=== PATIENT | male | born 1960 | race Caucasian/White ===

== ENCOUNTER 2023-09-05 13:44 | Emergency (ER) | payer BC ==
[2023-09-05 13:56] VITALS: BP 164/89; O2SAT 100
[2023-09-05] MEDS: LIDOCAINE 1% 2 ML VIAL SUBQ STA (16:01)
[2023-09-05] MEDS: TETANUS/DIPHTHERIA/PERTUSSIS 0.5 ML SYRINGE IM ONE (16:25)
--- NOTE | 2023-09-05 16:37 | ED Physician Documentation ---
PD HPI UPPER EXT INJURY - Stated complaint Stated Complaint: LT HAND LAC - Chief complaint Chief Complaint: Laceration - History obtained from History obtained from: Patient, Family - History of Present Illness Location: Left, Hand Type of injury: Laceration Where injury occurred: Home Timing - onset: Today Timing - duration: Hours Timing - details: Abrupt onset, Still present Improved by: Rest Worsened by: Moving, Palpating Associated symptoms: No: Weakness, Numbness, Tingling, Swelling, Discolored Contributing factors: No: Anticoagulated Similar symptoms before: Diagnosis (laceration) Recently seen: Not recently seen - Additonal information Additional information: Justin Nascimento is a 62-year-old male who was washing out his bees sugar water cups when one of the cups broke and he lacerated his webspace of the fourth and fifth digits on the left hand. His attempted to tape the shut and this did not appear to work well. He is now here for suturing. He is not up-to-date on his tetanus. Review of Systems Constitutional: denies: Fever Respiratory: denies: Cough GI: denies: Vomiting, Diarrhea PD PAST MEDICAL HISTORY - Past Medical History Past Medical History: No - Past Surgical History Past Surgical History: No - Present Medications Home Medications: Ambulatory Orders Medication Instructions Recorded Confirmed Losartan [Cozaar] 50 mg PO DAILY 09/05/23 09/05/23 - Allergies Allergies/Adverse Reactions: Allergies Allergy/AdvReac Type Severity Reaction Status Date / Time No Known Drug Allergies Allergy Verified 09/05/23 15:18 - Social History Does the pt smoke?: No Smoking Status: Never smoker Does the pt drink ETOH?: No Does the pt have substance abuse?: No - Immunizations Immunizations are current?: No PD ED PE NORMAL - Vitals Vital signs reviewed: Yes (hypertensive ) - General General: Alert and oriented X 3, No acute distress, Well developed/nourished - HEENT HEENT: Atraumatic, PERRL, EOMI - Respiratory Respiratory: No respiratory distress - Derm Derm: Normal color, Warm and dry, No rash - Extremities Extremities: No deformity, No edema, Other (There is a 3 cm laceration of the webspace between the fourth and fifth digits of the left hand. There is no involvement of deeper tissues there is no foreign material in the wound.) - Neuro Neuro: Alert and oriented X 3, neurology epilepsy physician 2-12 intact, No motor deficit, No sensory deficit, Normal speech Eye Opening: Spontaneous Motor: Obeys Commands Verbal: Oriented GCS Score: 15 - Psych Psych: Normal mood, Normal affect Results - Vitals Vitals: Vital Signs - 24 hr 09/05/23 13:52 Temperature 36.7 C Heart Rate 66 Respiratory 16 Rate Blood Pressure 164/89 H O2 Saturation 100 Procedures - Laceration (location) left hand Length in cm: 3 Wound type: Linear, Into subcut fat, Clean Neurovascular status: Sensory intact, Motor intact, Vascular intact Tendon involvement: Tendon intact Anesthesia: Lidocaine 1% Wound preparation: Hibiclens, Irrigated copiously NS, Wound explored, To the base Skin layer closure: Nylon, Interrupted, Size #-0 - enter number (5-0), Sutures - enter # (4) Other: Patient tolerated well, No complications, Neurovascular intact, Dressing applied, Tetanus booster given PD Medical Decision Making - ED course Complexity details: considered differential, d/w patient, d/w family ED course: 62-year-old male with a laceration to the webspace of the fourth and fifth digits of the left hand is sutured dressed and given a tetanus booster. Departure - Departure Disposition: 01 Home, Self Care Clinical Impression: Laceration of left hand Qualifiers: Encounter type: initial encounter Foreign body presence: without foreign body Qualified Code(s): S61.412A - Laceration without foreign body of left hand, initial encounter Condition: Stable Instructions: ED Laceration Hand Comments: Justin, today it looks like the laceration to your left hand should heal well after suturing. The sutures will need to be removed in 7 to 10 days. Forms: PCP List
== END 2023-09-05 16:45 | disposition home or self-care (01) ==
LOC: ED 13:44
DX: S61.412A Laceration without foreign body of left hand, initial encounter (principal); W25.XXXA Contact with sharp glass, initial encounter; Z23 Encounter for immunization
CPT/HCPCS: 12002; 90471; 99283